=== PATIENT | female | born 1985 | race Two or more races ===

== ENCOUNTER 2017-09-18 11:50 | Inpatient (IN) | payer OTHER ==
--- NOTE | 2017-09-18 15:40 | HP ---
Past Medical History - Past Medical History ...: 1 ...Para: 0 ...Term: 0 ...: 0 ...Spon : 0 ...Induced : 0 ...EDC by [facility]: 09/13/17 Home Medications - Allergies Allergies/Adverse Reactions: Allergies Allergy/AdvReac Type Severity Reaction Status Date / Time No Known Allergies Allergy Verified 09/18/17 12:25 - Home Medications Home Medications: Ambulatory Orders Ascorbic Acid [Vitamin C -] 500 mg PO DAILY 09/18/17 Pnv No.95/Ferrous Fum/Folic AC [ Vitamin Tablet] 1 each PO DAILY Physical Exam - Maternity Vital Signs: Vital Signs Temperature 97.9 F 09/18/17 12:20 Pulse Rate 85 09/18/17 12:20 Respiratory Rate 20 09/18/17 12:20 Blood Pressure 113/75 09/18/17 12:20 O2 Sat by Pulse Oximetry (%)
[2017-09-18] MEDS ORDERED: PROMETHAZINE HCL 25 MG/1 ML VIAL IVPUSH ONE (15:45)
[2017-09-18] MEDS ORDERED: BUTORPHANOL TARTRATE 1 MG/ML VIAL IVPB PRN (15:45)
[2017-09-18] MEDS ORDERED: ELECTROLYTE-148 SOLN 1,000 ML IV SCH (15:45)
[2017-09-18 16:08] VITALS: BMI 33.0
[2017-09-18 16:37] LABS: BASO % 0.3 % (0-2.0); HEMATOCRIT 36.6 % (32.4-45.2); HEMOGLOBIN 12.3 GM/dL (10.7-15.3); LYMPH % 9.2 % (8-40); MCH 28.2 pg (25.7-33.7); MCHC 33.6 g/dl (32.0-36.0); MEAN CELL VOLUME 83.9 fl (80-96); MEAN PLT VOLUME 10.1 fl (7.5-11.1); MONO % 4.6 % (3.8-10.2); NEUT % 85.9 % (42.8-82.8); PLATELET COUNT 237 K/MM3 (134-434); RBC 4.36 M/mm3 (3.60-5.2); RDW 14.1 % (11.6-15.6); WHITE BLOOD COUNT 9.9 K/mm3 (4.0-10.0)
[2017-09-18] MEDS ORDERED: TUBERCULIN PPD 5 TU/0.1ML SYRINGE (IN PATIENT USE ONLY) ID ONE (17:00)
[2017-09-18 17:10] LABS: INR 1.04 (0.82-1.09); PROTHROMBIN TIME (PATIENT) 11.7 SEC (9.7-13.0)
[2017-09-18 17:13] LABS: ACTIVATED PTT 26.9 SECONDS (25.2-36.5)
[2017-09-18] MEDS ORDERED: BUTORPHANOL TARTRATE 1 MG/ML VIAL ONE ×4 (17:31→22:50)
[2017-09-18] MEDS ORDERED: PROMETHAZINE HCL 25 MG/1 ML VIAL ONE ×2 (17:31→22:51)
[2017-09-18 17:48] LABS: ANION GAP 11 (8-16); BLOOD UREA NITROGEN 10 mg/dL (7-18); CALCIUM 8.6 mg/dL (8.5-10.1); CHLORIDE 106 mmol/L (98-107); CO2 23 mmol/L (21-32); CREATININE 0.7 mg/dL (0.55-1.02); GLUCOSE,RANDOM 95 mg/dL (74-106); POTASSIUM 4.1 mmol/L (3.5-5.1); SODIUM 140 mmol/L (136-145)
[2017-09-18] MEDS ORDERED: BUTORPHANOL TARTRATE 1 MG/ML VIAL IVPB ONE (22:15)
[2017-09-18] MEDS ORDERED: PROMETHAZINE HCL 25 MG/1 ML VIAL IVPB ONE (22:15)
[2017-09-19] MEDS ORDERED: BUPIVACAINE HCL/PF 0.25% (2.5MG/ML) 10 ML VIAL ONE ×2 (01:23→03:58)
[2017-09-19] MEDS ORDERED: LIDO 2%/EPI 1:200000 PRESRVFRE (20 ML SDVIAL) ONE (01:23)
[2017-09-19] MEDS ORDERED: FENTANYL/BUPIVACAINE/NS/PF - PCEA - 50 ML DISP.SYRIN EP ONE ×2 (01:25→04:14)
[2017-09-19] MEDS ORDERED: NALOXONE HCL 0.4 MG/ML VIAL IVPUSH PRN (01:46)
[2017-09-19] MEDS ORDERED: FENTANYL/BUPIVACAINE/NS/PF - PCEA - 50 ML DISP.SYRIN EP SCH (02:00)
[2017-09-19] MEDS ORDERED: OXYTOCIN 30 UNITS in 0.9% NS 30 UNIT/500 ML INFUS.BAG IVPB SCH (05:00)
[2017-09-19] MEDS ORDERED: OXYTOCIN 20 UNITS in 0.9% NS 20 UNIT/1,000 ML INFUS.BAG IV ONE ×2 (05:28→07:44)
[2017-09-19] MEDS ORDERED: BENZOCAINE 28 GM HEMORRHOIDAL OINTMENT TP PRN (08:41)
[2017-09-19] MEDS ORDERED: METHYLERGONOVINE MALEATE 0.2 MG/1 ML AMP IM PRN (08:41)
[2017-09-19] MEDS ORDERED: WITCH HAZEL 50% (TUCKS) 40 PAD/JAR PAD TP PRN (08:41)
[2017-09-19] MEDS ORDERED: BISACODYL 10 MG SUPP.RECT RC PRN (08:41)
[2017-09-19] MEDS ORDERED: BENZOCAINE 20% 57 GM BOTTLE TP PRN (08:41)
--- NOTE | 2017-09-19 08:41 | PN ---
Ante-Partal Exam - Subjective Subjective: Pt feeling urge to push Vital Signs: Vital Signs Temperature 97.9 F 09/19/17 06:00 Pulse Rate 121 H 09/19/17 08:00 Respiratory Rate 18 09/19/17 08:00 Blood Pressure 127/71 09/19/17 08:00 O2 Sat by Pulse Oximetry (%) 100 09/19/17 08:00 Bleeding: Yes Bleeding Description: Mild Headache: No Visual changes: No Right upper quadrant pain: No - Contractions Contractions: Yes Regularity: Regular Intensity: Mod/Strong Monitor Mode: External - Exam during Labor Variability: Moderate Category: I Exam: Vaginal Dilatation (cm): 10 Effacement (%): 100 Amniotic Membrane Status: Ruptured Station: 0 - Assessment/Plan Assessment/Plan: 32 y/o with SIUP at 40.5 weeks, labor, augmented overnight with pitocin AFVSS FHTS cat 1 to begin pushing
[2017-09-19] MEDS ORDERED: OXYTOCIN 20 UNITS in 0.9% NS 20 UNIT/1,000 ML INFUS.BAG IV SCH (08:45)
--- NOTE | 2017-09-19 10:05 | PN ---
Delivery - Delivery Vaginal Delivery: No Problems Type of Anesthesia: Epidural Episiotomy/Laceration: 2nd degree EBL (cc): 300 Delivery, Single - Stages of Labor Date of Delivery: 09/19/17 Time of Delivery: Date Placenta Delivered: 09/19/17 Time Placenta Delivered: Placenta: Yes: Spontaneous - Condition of Gender: Female Position: Right, OA - 1 Minute Total Score: 9 5 Minutes Total Score: 9 - [place] Feeding Plan Initial Plan: Elected not to breastfeed exclusively throughout hospitalization Remarks - Remarks Remarks: Uncomplicated of baby girl from PAMELA position loose nuchal cord noted, reduced after delivery of head anterior shoulder and posterior shoulders delivered with ease cord clamped and cut mouth and nose bulb suctioned placenta delivered in tact with 3VC 2nd degree lac repaired with 2-0 vicryl and 2-0 biosyn mom stable sponge and needle count correct baby to well baby nursery
[2017-09-19] MEDS: IBUPROFEN 600 MG TABLET (FP) PO PRN ×3 (10:08→23:08)
[2017-09-19] MEDS: ACETAMINOPHEN 325 MG TABLET (FP) PO PRN ×2 (10:09→23:09)
[2017-09-19] MEDS ORDERED: ACETAMINOPHEN 325 MG TABLET (FP) ONE (10:11)
[2017-09-19] MEDS ORDERED: IBUPROFEN 600 MG TABLET (FP) PO ONE (10:11)
[2017-09-19] MEDS: PRENATAL VITAMINS W/ FOLIC ACID TABLET (FP) PO SCH (11:57)
[2017-09-19] MEDS: FERROUS SO4 325 MG TABLET (FP) PO SCH ×2 (11:57→17:32)
[2017-09-20] MEDS: ACETAMINOPHEN 325 MG TABLET (FP) PO PRN (07:06)
[2017-09-20] MEDS: FERROUS SO4 325 MG TABLET (FP) PO SCH ×3 (07:06→17:03)
[2017-09-20] MEDS: IBUPROFEN 600 MG TABLET (FP) PO PRN ×2 (07:06→15:02)
--- NOTE | 2017-09-20 09:10 | PN ---
Post Progress Note - Subjective Subjective: Pt seen/evaluated and doing well. Pain controlled, tolerating diet. Ambulating , voiding, passing flatus. no complaints. Type of Delivery: Vital Signs: Vital Signs Temperature 98.1 F 09/20/17 07:51 Pulse Rate 74 09/20/17 07:51 Respiratory Rate 18 09/20/17 07:51 Blood Pressure 121/75 09/20/17 07:51 O2 Sat by Pulse Oximetry (%) 100 09/19/17 10:15 Uterus: Yes: Fundus Firm, Fundus below umbilicus Abdomen/GI: Yes: Abdomen soft, Passing flatus, Tolerating PO. No: Tender Lochia: Yes: Rubra Lochia, amount: Small Extremities: Yes: Calves non-tender Perineum: Yes: Laceration (2nd degree) Activity: Ambulating - Labs Labs: CBC WBC 9.9 K/mm3 (4.0-10.0) 09/18/17 15:31 RBC 4.36 M/mm3 (3.60-5.2) 09/18/17 15:31 Hgb 12.3 GM/dL (10.7-15.3) 09/18/17 15:31 Hct 36.6 % (32.4-45.2) 09/18/17 15:31 MCV 83.9 fl (80-96) 09/18/17 15:31 MCH 28.2 pg (25.7-33.7) 09/18/17 15:31 MCHC 33.6 g/dl (32.0-36.0) 09/18/17 15:31 RDW 14.1 % (11.6-15.6) 09/18/17 15:31 Plt Count 237 K/MM3 (134-434) 09/18/17 15:31 MPV 10.1 fl (7.5-11.1) 09/18/17 15:31 Absolute Neuts (auto) 8.5 # 09/18/17 15:31 Neutrophils % 85.9 % (42.8-82.8) H 09/18/17 15:31 Lymphocytes % 9.2 % (8-40) 09/18/17 15:31 Monocytes % 4.6 % (3.8-10.2) 09/18/17 15:31 Eosinophils % 0.0 % (0-4.5) 18 15:31 Basophils % 0.3 % (0-2.0) 18 15:31 Nucleated RBC % 0 % (0-0) 09/18/17 15:31 Problem List - Problems (1) Vaginal delivery Code(s): O80 - ENCOUNTER FOR FULL-TERM UNCOMPLICATED DELIVERY Assessment/Plan AFVSS Regular diet encourage ambulation CBC pending routine post care
[2017-09-20] MEDS: PRENATAL VITAMINS W/ FOLIC ACID TABLET (FP) PO SCH (09:38)
[2017-09-20 09:58] LABS: BASO % 0.4 % (0-2.0); EOS % 0.4 % (0-4.5); HEMATOCRIT 25.5 % (32.4-45.2); HEMOGLOBIN 8.6 GM/dL (10.7-15.3); LYMPH % 18.8 % (8-40); MCH 28.5 pg (25.7-33.7); MCHC 33.8 g/dl (32.0-36.0); MEAN CELL VOLUME 84.4 fl (80-96); MEAN PLT VOLUME 9.5 fl (7.5-11.1); MONO % 7.9 % (3.8-10.2); NEUT % 72.5 % (42.8-82.8); PLATELET COUNT 172 K/MM3 (134-434); RBC 3.02 M/mm3 (3.60-5.2); RDW 14.3 % (11.6-15.6); WHITE BLOOD COUNT 12.8 K/mm3 (4.0-10.0)
[2017-09-20] MEDS ORDERED: DIPHTH,PERTUSS(ACELL),TET 0.5 ML DISP.SYRIN IM ONE (10:00)
[2017-09-20] MEDS ORDERED: SENNOSIDES/DOCUSATE COMBO (SENNA PLUS) TABLET (UD) PO PRN (22:00)
--- NOTE | 2017-09-21 05:35 | PN ---
Post Progress Note Post Day: 2 Type of Delivery: Vital Signs: Vital Signs Temperature 98.0 F 09/20/17 22:00 Pulse Rate 94 H 09/20/17 22:00 Respiratory Rate 20 09/20/17 22:00 Blood Pressure 122/54 09/20/17 22:00 O2 Sat by Pulse Oximetry (%) 100 09/19/17 10:15 Breast Exam: Yes: Soft Uterus: Yes: Fundus Firm Abdomen/GI: Yes: Abdomen soft, Passing flatus, Tolerating PO Lochia: Yes: Serosa Lochia, amount: Moderate Extremities: Yes: Calves non-tender Activity: Ambulating - Labs Labs: CBC WBC 12.8 K/mm3 (4.0-10.0) H 09/20/17 09:30 RBC 3.02 M/mm3 (3.60-5.2) L D 09/20/17 09:30 Hgb 8.6 GM/dL (10.7-15.3) L D 09/20/17 09:30 Hct 25.5 % (32.4-45.2) L D 09/20/17 09:30 MCV 84.4 fl (80-96) 09/20/17 09:30 MCH 28.5 pg (25.7-33.7) 09/20/17 09:30 MCHC 33.8 g/dl (32.0-36.0) 09/20/17 09:30 RDW 14.3 % (11.6-15.6) 09/20/17 09:30 Plt Count 172 K/MM3 (134-434) D 09/20/17 09:30 MPV 9.5 fl (7.5-11.1) 09/20/17 09:30 Absolute Neuts (auto) 9.3 # 09/20/17 09:30 Neutrophils % 72.5 % (42.8-82.8) 09/20/17 09:30 Lymphocytes % 18.8 % (8-40) D 09/20/17 09:30 Monocytes % 7.9 % (3.8-10.2) 09/20/17 09:30 Eosinophils % 0.4 % (0-4.5) D 09/20/17 09:30 Basophils % 0.4 % (0-2.0) 09/20/17 09:30 Nucleated RBC % 0 % (0-0) 09/20/17 09:30 Assessment/Plan s/p normal spontaneous vaginal delivery condition stable plan to discharge home today, f/u in 4 weeks continue vitamins may use motrin prn pain
[2017-09-21] MEDS: IBUPROFEN 600 MG TABLET (FP) PO PRN (06:55)
[2017-09-21] MEDS: ACETAMINOPHEN 325 MG TABLET (FP) PO PRN (06:56)
[2017-09-21] MEDS: FERROUS SO4 325 MG TABLET (FP) PO SCH ×2 (08:33→11:35)
[2017-09-21 08:46] VITALS: BP 127/68; PULSE 80; TEMP 98.5
[2017-09-21 09:07] LABS: BASO % 0.4 % (0-2.0); EOS % 1.6 % (0-4.5); HEMOGLOBIN 8.7 GM/dL (10.7-15.3); LYMPH % 19.4 % (8-40); MCH 28.9 pg (25.7-33.7); MCHC 33.6 g/dl (32.0-36.0); MEAN CELL VOLUME 85.9 fl (80-96); MEAN PLT VOLUME 9.5 fl (7.5-11.1); MONO % 4.6 % (3.8-10.2); PLATELET COUNT 188 K/MM3 (134-434); RBC 3.03 M/mm3 (3.60-5.2); RDW 14.3 % (11.6-15.6); WHITE BLOOD COUNT 10.9 K/mm3 (4.0-10.0)
[2017-09-21] MEDS: PRENATAL VITAMINS W/ FOLIC ACID TABLET (FP) PO SCH (09:13)
== END 2017-09-21 14:30 | disposition home or self-care (01) | DRG 560 ==
LOC: JDEL 11:50 → JLDR 15:30 → J3W 09-19 11:32
PROVIDERS: ADMIT Obstetrics & Gynecology; ATTEND Obstetrics & Gynecology
PROC: 0W8NXZZ Division of Female Perineum, External Approach (ICD-10-PCS; principal; 2017-09-19)
PROC: 10E0XZZ Delivery of Products of Conception, External Approach (ICD-10-PCS; 2017-09-19)
PROC: 0KQM0ZZ Repair Perineum Muscle, Open Approach (ICD-10-PCS; 2017-09-19)
DX: O70.1 Second degree perineal laceration during delivery (principal); Z3A.40 40 weeks gestation of pregnancy; Z37.0 Single live birth
CPT/HCPCS: 36415; 59409; 80048; 85025; 85610; 85730; 86593; 86850; 86900; 86901; 90715

== ENCOUNTER 2018-05-13 14:37 | Inpatient (IN) | payer OTHER ==
[2018-05-13] MEDS ORDERED: ONDANSETRON 4 MG/2 ML VIAL IVPUSH ONE (14:53)
[2018-05-13] MEDS ORDERED: SODIUM CHLORIDE 1,000 ML IV STA (14:53)
--- NOTE | 2018-05-13 14:55 | PDOC ---
Rapid Medical Evaluation Time Seen by Provider: 05/13/18 14:49 Medical Evaluation: Allergies Allergy/AdvReac Type Severity Reaction Status Date / Time No Known Allergies Allergy Verified 05/13/18 14:49 05/13/18 14:50 Pt presents for R flank pain/R abdominal pain starting this morning. Pt had kidney stones in the past. Also with associated vomiting. LMP 05/02/18 Exam: Pt appears uncomfortable. R sided CVA tenderness. Vomiting in triage Orders: Labs, IV Pt to proceed to the ED for further evaluation Discharge Disposition - Diagnosis Abdominal pain Qualifiers: Abdominal location: right lower quadrant Qualified Code(s): R10.31 - Right lower quadrant pain - Referrals - Patient Instructions - Post Discharge Activity
--- NOTE | 2018-05-13 15:25 | PDOC ---
History of Present Illness - General Chief Complaint: Pain, Acute Stated Complaint: ABD PAIN Time Seen by Provider: 05/13/18 14:49 History Source: Patient - History of Present Illness Initial Comments: 05/13/18 15:51 33 yr old woman with hx of nephrolithiasis presenting to the ED with nausea, vomiting and abdominal pain since 7am this morning. it is sharp starting at her right flank, >10/10, radiating down, now located in her lower abdomen. she had 5 episodes of emesis consisting of food and later bilious, denies blood. a/w decr urine output with weak stream today. denies fever, cough, dysuria, hematuria, diarrhea, constipation, chest pain, palpitations, edema, dizziness, lightheadedness. feels like the last time she had renal stones. last time she had stones was 6yrs ago and she was able to pass them. denied recent travel Soc hx denies smoking, ETOH and illicit drug use Pmhx: nephrolithiasis Surghx: denies Fmhx: mother with thyroid cancer dx'd at age 52, father with DMII Past History - Past Medical History Allergies/Adverse Reactions: Allergies Allergy/AdvReac Type Severity Reaction Status Date / Time No Known Allergies Allergy Verified 05/13/18 14:49 Home Medications: Ambulatory Orders NK [No Known Home Medication] 05/13/18 Asthma: No Cancer: No Cardiac Disorders: No COPD: No Diabetes: No HTN: No Kidney Stones: Yes (X1) Seizures: No Thyroid Disease: Yes (ELEVATED TSH IN , SAW DELI CUTTER SLICER, 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 Loss HEENTM: No: Nose Pain, Throat Pain, Difficulty Swallowing Respiratory: No: Cough, Shortness of Breath, Wheezing Cardiac (ROS): No: Chest Pain, Lightheadedness, Palpitations, Chest Tightness ABD/GI: Yes: Nausea, Vomiting. No: Abdominal Distended Musculoskeletal: No: Muscle Weakness, Joint Stiffness Integumentary: No: Dryness, Erythema *Physical Exam - Vital Signs Last Vital Signs Temp Pulse Resp BP Pulse Ox 98.4 F 69 19 95/50 L 97 05/13/18 14:50 05/13/18 14:50 05/13/18 14:50 05/13/18 14:50 05/13/18 14:50 - Physical Exam General Appearance: Yes: Appropriately Dressed, Apparent Distress, Mild Distress HEENT: positive: EOMI, BHUPENDRA, Normal Voice, Pharynx Normal. negative: Tonsillar Exudate Neck: positive: Trachea midline, Normal Thyroid, Supple Respiratory/Chest: positive: Lungs Clear, Normal Breath Sounds. negative: Crackles, Wheezing Cardiovascular: positive: Regular Rhythm, Regular Rate Gastrointestinal/Abdominal: positive: Normal Bowel Sounds, Tenderness (RLQ with deep palpation). negative: Guarding, Rebound, Hernia, Mass Musculoskeletal: negative: CVA Tenderness Extremity: positive: Normal Range of Motion. negative: Calf Tenderness Neurologic: positive: Fully Oriented, Motor Strength 5/5 Moderate Sedation - Procedure Monitoring Vital Signs: Procedure Monitoring Vital Signs Temperature 98.4 F 05/13/18 14:50 Pulse Rate 69 05/13/18 14:50 Respiratory Rate 19 05/13/18 14:50 Blood Pressure 95/50 L 05/13/18 14:50 O2 Sat by Pulse Oximetry (%) 97 05/13/18 14:50 ED Treatment Course - LABORATORY CBC & Chemistry Diagram: 05/13/18 15:11 05/13/18 15:10 Medical Decision Making - Medical Decision Making 05/13/18 16:49 33 yr old woman with radiating RLQ pain a/w vomiting. labs with leucocytosis. differentials include appendicitis, renal stones, diverticulitis, cholecystitis, hyperkalemia at 6.0 with normal BUN/Cr, unclear source of elevation, could be due to vomiting, check EKG will do abdominal/pelvis CT scan to r/o renal stones and abdominal pathology pain relief with toradol 05/13/18 18:12 obstructing stone 6x4 noted [address] scan pt to be admitted, [facility] covering for Dr. Pollack, covering for Dr. Lopes consult placed for Dr. Issa, awaiting call back 05/13/18 18:[address] Issa: keep NPO, pain control, antibiotics, urine culture , ivf. she will be seen in the morning. 05/13/18 19:07 updated admitting team regarding plan. discussed with patient, she is in agreement to admission and plan. answered all her questions to satisfaction. *DC/Admit/Observation/Transfer Diagnosis at time of Disposition: Nephrolithiasis Abdominal pain Qualifiers: Abdominal location: right lower quadrant Qualified Code(s): R10.31 - Right lower quadrant pain - Discharge Dispostion Decision to Admit order: Yes - Referrals - Patient Instructions - Post Discharge Activity
[2018-05-13 15:27] LABS: BASO % 0.2 % (0-2.0); HEMATOCRIT 41.1 % (32.4-45.2); HEMOGLOBIN 14.2 GM/dL (10.7-15.3); LYMPH % 4.4 % (8-40); MCH 29.6 pg (25.7-33.7); MCHC 34.6 g/dl (32.0-36.0); MEAN CELL VOLUME 85.6 fl (80-96); MEAN PLT VOLUME 10.8 fl (7.5-11.1); MONO % 2.8 % (3.8-10.2); NEUT % 92.6 % (42.8-82.8); PLATELET COUNT 258 K/MM3 (134-434); RDW 14.6 % (11.6-15.6); WHITE BLOOD COUNT 14.3 K/mm3 (4.0-10.0)
[2018-05-13 15:34] LABS: HCG,QUALITATIVE URINE Negative
[2018-05-13] MEDS ORDERED: ONDANSETRON 4 MG/2 ML VIAL ONE (15:37)
[2018-05-13 15:47] LABS: URINE APPEARANCE SLCLOUDY; URINE BILIRUBIN NEGATIVE (<2.0 mg/dL); URINE COLOR YELLOW; URINE GLUCOSE (UA) NEGATIVE (NEGATIVE); URINE KETONE TRACE (NEGATIVE); URINE LEUK ESTERASE 2+ (NEGATIVE); URINE NITRITE NEGATIVE (NEGATIVE); URINE PROTEIN 2+ (NEGATIVE)
[2018-05-13 15:58] LABS: ALBUMIN 4.1 g/dl (3.4-5.0); ALK PHOS 168 U/L (45-117); ANION GAP 5 MMOL/L (8-16); BILIRUBIN,TOTAL 0.4 mg/dL (0.2-1); BLOOD UREA NITROGEN 18 mg/dL (7-18); CALCIUM 8.9 mg/dL (8.5-10.1); CHLORIDE 103 mmol/L (98-107); CO2 27 mmol/L (21-32); CREATININE 1.2 mg/dL (0.55-1.3); GLUCOSE,RANDOM 103 mg/dL (74-106); LIPASE 67 U/L (73-393); SGOT/AST 85 U/L (15-37); SGPT/ALT 41 U/L (13-61); SODIUM 135 mmol/L (136-145); TOT PROT 8.3 g/dl (6.4-8.2)
[2018-05-13 16:14] LABS: EPI CELLS FEW /HPF (FEW); URINE BACTERIA RARE /hpf (NONE SEEN); URINE MUCUS RARE
--- NOTE | 2018-05-13 16:29 | PDOC ---
Attending Attestation - Resident Resident Name: Luis Eduardo Layne - ED Attending Attestation I have performed the following: I have examined & evaluated the patient, The case was reviewed & discussed with the resident, I agree w/resident's findings & plan - HPI HPI: 05/13/18 16:24 33y/o F h/o kidney stones p/w R flank/abdominal pain since this morning, sharp and persistent with occasional severe exacerbations. associated with nbnb n/v, no f/c. no dysuria/hematuria. feels like past kidney stones, no h/o gallstones or postprandial abdominal pain. - Physicial Exam PE: 05/13/18 16:25 VSS well appearing and ambulating, nad no jaundice/pallor s1s2 rrr, ctab soft/nd. tender R mid/lower abd without guarding/rebound, some referred pain to R from L sided palpation. no cvat or RUQ sono. no rash - Medical Decision Making 05/13/18 16:26 33y/o F with h/o kidney stones p/w R sided flank/abd pain since this morning with n/v. presentation could be most c/w nephrolithiasis, r/o appy or etiology. labs notable for wbc 14, K6 with normal Cr, slightly elevated alk phos. ua with 10w, 40r. 2+ leuk with negative nitrites ctap to r/o obstructing stone, evaluate GI pain control reassess
[2018-05-13] MEDS ORDERED: KETOROLAC TROMETHAMINE 30 MG/1 ML VIAL IM ONE (17:33)
[2018-05-13 17:34] LABS: PLATELET ESTIMATE ADEQUATE
[2018-05-13] MEDS ORDERED: KETOROLAC TROMETHAMINE 30 MG/1 ML VIAL IVPUSH ONE (17:34)
[2018-05-13] MEDS ORDERED: KETOROLAC TROMETHAMINE 30 MG/1 ML VIAL ONE (17:35)
[2018-05-13] MEDS ORDERED: CEFTRIAXONE 1 GM in DEXTROSE 5%-WATER - 100 ML IVPB ONE (18:46)
[2018-05-13] MEDS ORDERED: CEFTRIAXONE 1 GM/50 ML BAG ONE (19:04)
[2018-05-13] MEDS ORDERED: ONDANSETRON 4 MG/2 ML VIAL IVPUSH PRN (19:22)
[2018-05-13] MEDS ORDERED: SODIUM CHLORIDE 1,000 ML IV SCH (19:30)
--- NOTE | 2018-05-13 19:36 | HP ---
CHIEF COMPLAINT: Right flank/Abdominal pain PCP: HISTORY OF PRESENT ILLNESS: The patient is a 33 yo f w/ PMH nephrolithiasis who comes into the ED c/o a 1 day hx nausea, vomiting and abdominal pain. The patient states that at about 7am this morning, she began to experience a sharp, 10/10 pain in her right flank area. This pain radiated to her right inguinal region and had no exacerbating or alleviating factors. These symptoms were also associated with dysuria as well as decreased urine output for the past day as well. The patient also endorses nausea and 5 episodes on NBNB vomiting. The vomiting resolved after the pain was treated in the ED. The patient denies fevers, chills hematuria, chest pain, SOB. ER course was notable for: (1) CTAP showing obstructing 6mm x 4mm stone at the right UVJ (2) WBC 14.3, potassium 6.0, BUN 18, Cr. 1.2 (3) UA showing 2+prot, 1+ blood, 2+ leuk esterase, 10 WBC Recent Travel: none PAST MEDICAL HISTORY: Nephrolithiasis PAST SURGICAL HISTORY: none Social History: Smoking: denies Alcohol: denies Drugs: denies Family History: mother with thyroid cancer dx'd at age 52, father with DMII Allergies No Known Allergies Allergy (Verified 05/13/18 14:49) HOME MEDICATIONS: Home Medications Medication Instructions Recorded NK [No Known Home Medication] 05/13/18 REVIEW OF SYSTEMS CONSTITUTIONAL: Absent: fever, chills, diaphoresis, generalized weakness, malaise, loss of appetite, weight change HEENT: Absent: rhinorrhea, nasal congestion, throat pain, throat swelling, difficulty swallowing, mouth swelling, ear pain, eye pain, visual changes CARDIOVASCULAR: Absent: chest pain, syncope, palpitations, irregular heart rate, lightheadedness , peripheral edema RESPIRATORY: Absent: cough, shortness of breath, dyspnea with exertion, orthopnea, wheezing, stridor, hemoptysis GASTROINTESTINAL: Absent: abdominal distension, diarrhea, constipation, melena, hematochezia GENITOURINARY: Absent: frequency, urgency, hesitancy, hematuria, genital pain MUSCULOSKELETAL: Absent: myalgia, arthralgia, joint swelling, back pain, neck pain SKIN: Absent: rash, itching, pallor HEMATOLOGIC/IMMUNOLOGIC: Absent: easy bleeding, easy bruising, lymphadenopathy, frequent infections ENDOCRINE: Absent: unexplained weight gain, unexplained weight loss, heat intolerance, cold intolerance NEUROLOGIC: Absent: headache, focal weakness or paresthesias, dizziness, unsteady gait, seizure, mental status changes, bladder or bowel incontinence PSYCHIATRIC: Absent: anxiety, depression, suicidal or homicidal ideation, hallucinations. PHYSICAL EXAMINATION Vital Signs - 24 hr 05/13/18 05/13/18 14:50 18:54 Temperature 98.4 F 98.4 F Pulse Rate 69 Pulse Rate [ 71 Apical] Respiratory 19 18 Rate Blood Pressure 95/50 L Blood Pressure 105/58 L [Right Arm] O2 Sat by Pulse 97 98 Oximetry (%) GENERAL: Awake, alert, and fully oriented, in no acute distress. HEAD: Normal with no signs of trauma. EYES: Pupils equal, round and reactive to light, extraocular movements intact, sclera anicteric, conjunctiva clear. No lid lag. LUNGS: Breath sounds equal, clear to auscultation bilaterally. No wheezes, and no crackles. No accessory muscle use. HEART: Regular rate and rhythm, normal S1 and S2, 2/6 diasolic murmur heard all across the precordium, rub or gallop. ABDOMEN: Soft, not distended, normoactive bowel sounds, no guarding, no rebound , no masses. Mild tenderness to palpation in the RLQ and in the suprapubic region. LOWER EXTREMITIES: 2+ pulses, warm, well-perfused. No calf tenderness. No peripheral edema. NEUROLOGICAL: Cranial nerves II-X intact. Normal speech. SKIN: Warm, dry, normal turgor, no rashes or lesions noted, normal capillary refill. Laboratory Results - last 24 hr 05/13/18 05/13/18 05/13/18 15:10 15:10 15:11 WBC 14.3 H RBC 4.80 Hgb 14.2 Hct 41.1 D MCV 85.6 MCH 29.6 MCHC 34.6 RDW 14.6 Plt Count 258 D MPV 10.8 D Absolute Neuts (auto) 13.2 H Total Counted 100 Neutrophils % 92.6 H D Neutrophils % (Manual) 93.0 H Band Neutrophils % 1.0 Lymphocytes % 4.4 L D Lymphocytes % (Manual) 2.0 L Monocytes % 2.8 L Monocytes % (Manual) 4 Eosinophils % 0.0 D Basophils % 0.2 Nucleated RBC % 0 Platelet Estimate Adequate Platelet Comment Large platelets PT with INR Cancelled INR Cancelled Sodium 135 L Potassium 6.0 H Chloride 103 Carbon Dioxide 27 Anion Gap 5 L BUN 18 Creatinine 1.2 Creat Clearance w eGFR 52.06 Random Glucose 103 Calcium 8.9 Total Bilirubin 0.4 AST 85 H ALT 41 Alkaline Phosphatase 168 H Total Protein 8.3 H Albumin 4.1 Lipase 67 L Urine Color Urine Appearance Urine pH Ur Specific [place] Urine Protein Urine Glucose (UA) Urine Ketones Urine Blood Urine Nitrite Urine Bilirubin Urine Urobilinogen Ur Leukocyte Esterase Urine WBC (Auto) Urine RBC (Auto) Ur Epithelial Cells Urine Bacteria Urine Mucus Urine HCG, Qual 05/13/18 15:14 WBC RBC Hgb Hct MCV MCH MCHC RDW Plt Count MPV Absolute Neuts (auto) Total Counted Neutrophils % Neutrophils % (Manual) Band Neutrophils % Lymphocytes % Lymphocytes % (Manual) Monocytes % Monocytes % (Manual) Eosinophils % Basophils % Nucleated RBC % Platelet Estimate Platelet Comment PT with INR INR Sodium Potassium Chloride Carbon Dioxide Anion Gap BUN Creatinine Creat Clearance w eGFR Random Glucose Calcium Total Bilirubin AST ALT Alkaline Phosphatase Total Protein Albumin Lipase Urine Color Yellow Urine Appearance Slcloudy Urine pH 8.0 Ur Specific [place] 1.028 Urine Protein 2+ H Urine Glucose (UA) Negative Urine Ketones Trace H Urine Blood 1+ H Urine Nitrite Negative Urine Bilirubin Negative Urine Urobilinogen 2.0 H Ur Leukocyte Esterase 2+ H Urine WBC (Auto) 10 Urine RBC (Auto) 40 Ur Epithelial Cells Few Urine Bacteria Rare Urine Mucus Rare Urine HCG, Qual Negative ASSESSMENT/PLAN: The patient is a 33 yo f w/ PMH nephrolithiasis who comes in c/o a 1 day hx right sided flank pain and abdominal pain who was found to have an obstructing stone #RIght flank and abdominal pain 2/2 obstructing stone -CTAP shows 6mm x 4mm obstructing stone at the right UVJ w/ hydronephrosis -s/p toradol, rocephin in ED -urology (Dr. Prince) consulted from the ED; recommends NPO past midnight , rocephin, IVF and pain control. He will assess the patient in AM -Toradol 10mg PO Q6H PRN -zofran IV PRN nausea -NS @ 100 -NPO past midnight #hyperkalemia -K 6.0 in ED -No EKG changes or ssx at this time -will rpt BMP stat -will get GGT #Diastolic murmur -patient has no history of murmur/cardiac conditions -will obtain echo to [facility] #FEN -NS@100 -monitor lytes as above -NPO past midnight #prophy -patient ambulatory -SCDs #Dispo -admit med surg Visit type - Emergency Visit Emergency Visit: Yes ED Registration Date: 05/13/18 Care time: The patient presented to the Emergency Department on the above date and was hospitalized for further evaluation of their emergent condition. - New Patient This patient is new to me today: Yes Date on this admission: 05/13/18 - Critical Care Critical Care patient: No
--- NOTE | 2018-05-13 20:04 | PN ---
Teaching Attending Note Name of Resident: Jamir Ruvalcaba ATTENDING PHYSICIAN STATEMENT I saw and evaluated the patient. I reviewed the resident's note and discussed the case with the resident. I agree with the resident's findings and plan as documented. SUBJECTIVE: Seen and examined; please refer to resident note for further historical informaiton. Briefly, this is a 33 y/o female presenting to the ER with a CC of R-sided pain similar to her last renal stone (did not get procedure with spontaneously passing it). She has no other pertinent PMH and is not on any chronic Rx medications. Does have some dysuria and frequency, no recent abx. ER phoned urology who are aware patient is here. She will be brought to the floor with uro consult; size of the stone lends us to believe she will need procedural intervention. Denies any cardiopulmonary sx; incidentally found to have a murmur. 10 sys ROS done and negative aside from HPI PMH, PSH, Social hx, Family hx reviewed Med Rec Pending OBJECTIVE: VS, labs, imaging reviewed NAD, AAO, resting comfortably in bed NC AT EOMI PERRLA RRR s1/2; mild murmur with no gallops or rubs Lungs CTAB, w/ sym exp R-sided CVA/flank tenderness, ND +BS CN2-12 wnl, no fnd Normal mood, appropriate affect Labs reviewed; leukocytosis with 2+LE UA, K is 6 and repeat pending Echo pending Final read on imaging pending; prelim results reviewed ASSESSMENT AND PLAN: Patient presents with nephrolithiasis 1) Nephrolithiasis -Followup urology consult; defer ultimate management to their service. -NPO, IVF, pain and nausea control -Monitor BMP for any derrangement in renal function -Can consider flomax 2) Hyperkalemia
[2018-05-14 00:46] LABS: ALBUMIN 3.7 g/dl (3.4-5.0); ALK PHOS 150 U/L (45-117); ANION GAP 3 MMOL/L (8-16); BILIRUBIN,TOTAL 0.4 mg/dL (0.2-1); BLOOD UREA NITROGEN 16 mg/dL (7-18); CALCIUM 8.6 mg/dL (8.5-10.1); CHLORIDE 106 mmol/L (98-107); CO2 30 mmol/L (21-32); CREATININE 0.8 mg/dL (0.55-1.3); GAMMA GLUTAMYL TRANSPEPTIDASE 69 U/L (5-85); GLUCOSE,RANDOM 85 mg/dL (74-106); POTASSIUM 4.2 mmol/L (3.5-5.1); SGOT/AST 24 U/L (15-37); SGPT/ALT 31 U/L (13-61); SODIUM 139 mmol/L (136-145); TOT PROT 7.3 g/dl (6.4-8.2)
[2018-05-14] MEDS: KETOROLAC TROMETHAMINE 10 MG TABLET PO SCH ×3 (01:01→11:38)
[2018-05-14 03:17] VITALS: BMI 28.2
[2018-05-14 07:34] LABS: BASO % 0.4 % (0-2.0); EOS % 0.5 % (0-4.5); HEMATOCRIT 34.7 % (32.4-45.2); HEMOGLOBIN 11.8 GM/dL (10.7-15.3); LYMPH % 35.8 % (8-40); MCH 29.2 pg (25.7-33.7); MCHC 34.1 g/dl (32.0-36.0); MEAN CELL VOLUME 85.7 fl (80-96); MEAN PLT VOLUME 10.3 fl (7.5-11.1); MONO % 8.6 % (3.8-10.2); NEUT % 54.7 % (42.8-82.8); PLATELET COUNT 221 K/MM3 (134-434); RBC 4.04 M/mm3 (3.60-5.2); RDW 14.7 % (11.6-15.6)
[2018-05-14 07:52] LABS: ALBUMIN 3.2 g/dl (3.4-5.0); ALK PHOS 123 U/L (45-117); ANION GAP 5 MMOL/L (8-16); BILIRUBIN,TOTAL 0.4 mg/dL (0.2-1); BLOOD UREA NITROGEN 13 mg/dL (7-18); CHLORIDE 112 mmol/L (98-107); CO2 26 mmol/L (21-32); CREATININE 0.7 mg/dL (0.55-1.3); GLUCOSE,RANDOM 81 mg/dL (74-106); PHOSPHOROUS 2.5 mg/dL (2.5-4.9); POTASSIUM 3.9 mmol/L (3.5-5.1); SGOT/AST 15 U/L (15-37); SGPT/ALT 26 U/L (13-61); SODIUM 142 mmol/L (136-145); TOT PROT 6.2 g/dl (6.4-8.2)
[2018-05-14 08:29] LABS: INR 1.18 (0.83-1.09); PROTHROMBIN TIME (PATIENT) 13.9 SEC (9.7-13.0)
[2018-05-14 08:32] LABS: ACTIVATED PTT 28.9 SECONDS (25.2-36.5)
[2018-05-14 09:07] VITALS: BP 102/49; PULSE 62; TEMP 97.9
[2018-05-14] MEDS ORDERED: cefTRIAXone SODIUM 1 GM VIAL ONE (09:35)
[2018-05-14] MEDS ORDERED: DEXTROSE 5%-WATER - 50 ML IVPB ONE (09:35)
--- NOTE | 2018-05-14 09:53 | EKG ---
Test Reason : Blood Pressure : / mmHG Vent. Rate : 060 BPM Atrial Rate : 060 BPM P-R Int : 120 ms QRS Dur : 078 ms QT Int : 452 ms P-R-T Axes : 008 076 071 degrees QTc Int : 452 ms NORMAL SINUS RHYTHM NORMAL ECG NO PREVIOUS ECGS AVAILABLE Confirmed by LINDSAY CHOWDHURY, JEREMIAS ([id number]) on 05/14/2018 9:52:44 AM Referred By: Confirmed By:JEREMIAS MONTOYA MD
[2018-05-14] MEDS ORDERED: TAMSULOSIN HCL 0.4 MG CAP PO SCH (09:57)
[2018-05-14] MEDS ORDERED: CEFTRIAXONE 1 GM in DEXTROSE 5%-WATER - 50 ML IVPB SCH (10:00)
[2018-05-14] MEDS ORDERED: DEXTROSE 5%-NORMAL SALINE 1,000 ML IV SCH (10:30)
--- NOTE | 2018-05-14 10:30 | PN ---
Teaching Attending Note Name of Resident: Jordan Mcelroy ATTENDING PHYSICIAN STATEMENT I saw and evaluated the patient. I reviewed the resident's note and discussed the case with the resident. I agree with the resident's findings and plan as documented with exceptions below. SUBJECTIVE: Patient seen and examined. denies any pain or urinary symptoms. Reports similar symptoms few years ago when 'passed the stone'. OBJECTIVE: Vital Signs Period Temp Pulse Resp BP Sys/Vila Pulse Ox Last 24 Hr 97.9 F-98.8 F 57-71 16-20 88-105/47-58 97-98 Intake & Output 05/11/18 05/12/18 05/13/18 05/14/18 23:59 23:59 23:59 23:59 Intake Total 500 Output Total 500 Balance 0 Weight 151 lb 149 lb 8 oz General: sitting in bed in no acute distress Chest: CTAB, no rales or wheezing Abdomen: soft, non tender throughout, no suprapubic or CVA tenderness, ND Extremities: no edema Home Medications Medication Instructions Recorded NK [No Known Home Medication] 05/13/18 Active Medications Ceftriaxone Sodium 1 gm/ (Dextrose) 50 mls @ 100 mls/hr IVPB DAILY [facility] Last Admin: 05/14/18 09:36 Dose: 100 mls/hr Dextrose/Sodium Chloride (D5-Ns -) 1,000 mls @ 125 mls/hr IV ASDIR [facility] Ketorolac Tromethamine (Toradol) 10 mg PO Q6HPO [facility] Stop: 05/18/18 00:00 Last Admin: 05/14/18 07:44 Dose: Not Given Ondansetron HCl (Zofran Injection) 4 mg IVPUSH Q6H PRN PRN Reason: NAUSEA Tamsulosin HCl (Flomax -) 0.4 mg PO DAILY@0830 [facility] Laboratory Results - last 24 hr 05/13/18 05/13/18 05/13/18 15:10 15:10 15:11 WBC 14.3 H RBC 4.80 Hgb 14.2 Hct 41.1 D MCV 85.6 MCH 29.6 MCHC 34.6 RDW 14.6 Plt Count 258 D MPV 10.8 D Absolute Neuts (auto) 13.2 H Total Counted 100 Neutrophils % 92.6 H D Neutrophils % (Manual) 93.0 H Band Neutrophils % 1.0 Lymphocytes % 4.4 L D Lymphocytes % (Manual) 2.0 L Monocytes % 2.8 L Monocytes % (Manual) 4 Eosinophils % 0.0 D Basophils % 0.2 Nucleated RBC % 0 Platelet Estimate Adequate Platelet Comment Large platelets PT with INR Cancelled INR Cancelled PTT (Actin FS) Sodium 135 L Potassium 6.0 H Chloride 103 Carbon Dioxide 27 Anion Gap 5 L BUN 18 Creatinine 1.2 Creat Clearance w eGFR 52.06 Random Glucose 103 Calcium 8.9 Phosphorus Magnesium Total Bilirubin 0.4 GGT AST 85 H ALT 41 Alkaline Phosphatase 168 H Total Protein 8.3 H Albumin 4.1 Lipase 67 L Urine Color Urine Appearance Urine pH Ur Specific [place] Urine Protein Urine Glucose (UA) Urine Ketones Urine Blood Urine Nitrite Urine Bilirubin Urine Urobilinogen Ur Leukocyte Esterase Urine WBC (Auto) Urine RBC (Auto) Ur Epithelial Cells Urine Bacteria Urine Mucus Urine HCG, Qual 05/13/18 05/13/18 05/14/18 15:14 23:29 06:00 WBC 6.0 RBC 4.04 Hgb 11.8 Hct 34.7 D MCV 85.7 MCH 29.2 MCHC 34.1 RDW 14.7 Plt Count 221 MPV 10.3 Absolute Neuts (auto) 3.3 Total Counted Neutrophils % 54.7 D Neutrophils % (Manual) Band Neutrophils % Lymphocytes % 35.8 D Lymphocytes % (Manual) Monocytes % 8.6 D Monocytes % (Manual) Eosinophils % 0.5 D Basophils % 0.4 Nucleated RBC % 0 Platelet Estimate Platelet Comment PT with INR INR PTT (Actin FS) Sodium 139 Potassium 4.2 Chloride 106 Carbon Dioxide 30 Anion Gap 3 L BUN 16 Creatinine 0.8 Creat Clearance w eGFR > 60 Random Glucose 85 Calcium 8.6 Phosphorus Magnesium Total Bilirubin 0.4 GGT 69 AST 24 ALT 31 Alkaline Phosphatase 150 H Total Protein 7.3 Albumin 3.7 Lipase Urine Color Yellow Urine Appearance Slcloudy Urine pH 8.0 Ur Specific [place] 1.028 Urine Protein 2+ H Urine Glucose (UA) Negative Urine Ketones Trace H Urine Blood 1+ H Urine Nitrite Negative Urine Bilirubin Negative Urine Urobilinogen 2.0 H Ur Leukocyte Esterase 2+ H Urine WBC (Auto) 10 Urine RBC (Auto) 40 Ur Epithelial Cells Few Urine Bacteria Rare Urine Mucus Rare Urine HCG, Qual Negative 05/14/18 05/14/18 06:00 06:00 WBC RBC Hgb Hct MCV MCH MCHC RDW Plt Count MPV Absolute Neuts (auto) Total Counted Neutrophils % Neutrophils % (Manual) Band Neutrophils % Lymphocytes % Lymphocytes % (Manual) Monocytes % Monocytes % (Manual) Eosinophils % Basophils % Nucleated RBC % Platelet Estimate Platelet Comment PT with INR 13.90 H INR 1.18 H PTT (Actin FS) 28.9 Sodium 142 Potassium 3.9 Chloride 112 H Carbon Dioxide 26 Anion Gap 5 L BUN 13 Creatinine 0.7 Creat Clearance w eGFR > 60 Random Glucose 81 Calcium 8.0 L Phosphorus 2.5 Magnesium 2.0 Total Bilirubin 0.4 GGT AST 15 ALT 26 Alkaline Phosphatase 123 H Total Protein 6.2 L Albumin 3.2 L Lipase Urine Color Urine Appearance Urine pH Ur Specific [place] Urine Protein Urine Glucose (UA) Urine Ketones Urine Blood Urine Nitrite Urine Bilirubin Urine Urobilinogen Ur Leukocyte Esterase Urine WBC (Auto) Urine RBC (Auto) Ur Epithelial Cells Urine Bacteria Urine Mucus Urine HCG, Qual Microbiology 05/13/18 15:00 Urine - Urine Clean Catch Urine Culture - Final NO GROWTH OBTAINED ASSESSMENT AND PLAN: 33 yof with right obstructing nephrolithiasis with hydronephrosis/Hydroureter. -Right obtsrucitve nephrolithiasis with hydronephrosis/hydroureter Plan: Discussed with urology, conservative management Recommend flomax. Urine cx neg. Patient asymptomatic. Keflex x 5 days Patient advised to drink plenty of fluids, monitor urine for stone fragments, continue flomax and outpatient urology follow up. Medication instructions about flomax and risk for dizziness discussed. D/c home today with outpatient urology follow up. Plan discussed with patient in detail, all questions answered.
[2018-05-14] MEDS ORDERED: PT OWN MED DRAWER 7, Y5N ONE ×2 (11:37→11:56)
--- NOTE | 2018-05-14 14:25 | DS ---
Physical Exam: SUBJECTIVE: Patient seen and examined feels good no new complaints no more oakley OBJECTIVE: Vital Signs Period Temp Pulse Resp BP Sys/Vila Pulse Ox Last 24 Hr 97.9 F-98.8 F 57-71 16-20 88-105/47-58 97-100 PHYSICAL EXAM GENERAL: The patient is awake, alert, and fully oriented, in no acute distress. HEAD: Normal with no signs of trauma. ENT: oropharynx clear without exudates, moist mucous membranes. NECK: Trachea midline, full range of motion, supple. LUNGS: Breath sounds equal, clear to auscultation bilaterally, no wheezes, no crackles, no accessory muscle use. HEART: Regular rate and rhythm, S1, S2 normal ABDOMEN: Soft, nontender, nondistended, normoactive bowel sounds, no guarding, no rebound, PSYCH: Normal mood, normal affect. SKIN: Warm, dry, LABS Laboratory Results - last 24 hr 05/13/18 05/13/18 05/13/18 15:10 15:10 15:11 WBC 14.3 H RBC 4.80 Hgb 14.2 Hct 41.1 D MCV 85.6 MCH 29.6 MCHC 34.6 RDW 14.6 Plt Count 258 D MPV 10.8 D Absolute Neuts (auto) 13.2 H Total Counted 100 Neutrophils % 92.6 H D Neutrophils % (Manual) 93.0 H Band Neutrophils % 1.0 Lymphocytes % 4.4 L D Lymphocytes % (Manual) 2.0 L Monocytes % 2.8 L Monocytes % (Manual) 4 Eosinophils % 0.0 D Basophils % 0.2 Nucleated RBC % 0 Platelet Estimate Adequate Platelet Comment Large platelets PT with INR Cancelled INR Cancelled PTT (Actin FS) Sodium 135 L Potassium 6.0 H Chloride 103 Carbon Dioxide 27 Anion Gap 5 L BUN 18 Creatinine 1.2 Creat Clearance w eGFR 52.06 Random Glucose 103 Calcium 8.9 Phosphorus Magnesium Total Bilirubin 0.4 GGT AST 85 H ALT 41 Alkaline Phosphatase 168 H Total Protein 8.3 H Albumin 4.1 Lipase 67 L Urine Color Urine Appearance Urine pH Ur Specific [place] Urine Protein Urine Glucose (UA) Urine Ketones Urine Blood Urine Nitrite Urine Bilirubin Urine Urobilinogen Ur Leukocyte Esterase Urine WBC (Auto) Urine RBC (Auto) Ur Epithelial Cells Urine Bacteria Urine Mucus Urine HCG, Qual 05/13/18 05/13/18 05/14/18 15:14 23:29 06:00 WBC 6.0 RBC 4.04 Hgb 11.8 Hct 34.7 D MCV 85.7 MCH 29.2 MCHC 34.1 RDW 14.7 Plt Count 221 MPV 10.3 Absolute Neuts (auto) 3.3 Total Counted Neutrophils % 54.7 D Neutrophils % (Manual) Band Neutrophils % Lymphocytes % 35.8 D Lymphocytes % (Manual) Monocytes % 8.6 D Monocytes % (Manual) Eosinophils % 0.5 D Basophils % 0.4 Nucleated RBC % 0 Platelet Estimate Platelet Comment PT with INR INR PTT (Actin FS) Sodium 139 Potassium 4.2 Chloride 106 Carbon Dioxide 30 Anion Gap 3 L BUN 16 Creatinine 0.8 Creat Clearance w eGFR > 60 Random Glucose 85 Calcium 8.6 Phosphorus Magnesium Total Bilirubin 0.4 GGT 69 AST 24 ALT 31 Alkaline Phosphatase 150 H Total Protein 7.3 Albumin 3.7 Lipase Urine Color Yellow Urine Appearance Slcloudy Urine pH 8.0 Ur Specific [place] 1.028 Urine Protein 2+ H Urine Glucose (UA) Negative Urine Ketones Trace H Urine Blood 1+ H Urine Nitrite Negative Urine Bilirubin Negative Urine Urobilinogen 2.0 H Ur Leukocyte Esterase 2+ H Urine WBC (Auto) 10 Urine RBC (Auto) 40 Ur Epithelial Cells Few Urine Bacteria Rare Urine Mucus Rare Urine HCG, Qual Negative 05/14/18 05/14/18 06:00 06:00 WBC RBC Hgb Hct MCV MCH MCHC RDW Plt Count MPV Absolute Neuts (auto) Total Counted Neutrophils % Neutrophils % (Manual) Band Neutrophils % Lymphocytes % Lymphocytes % (Manual) Monocytes % Monocytes % (Manual) Eosinophils % Basophils % Nucleated RBC % Platelet Estimate Platelet Comment PT with INR 13.90 H INR 1.18 H PTT (Actin FS) 28.9 Sodium 142 Potassium 3.9 Chloride 112 H Carbon Dioxide 26 Anion Gap 5 L BUN 13 Creatinine 0.7 Creat Clearance w eGFR > 60 Random Glucose 81 Calcium 8.0 L Phosphorus 2.5 Magnesium 2.0 Total Bilirubin 0.4 GGT AST 15 ALT 26 Alkaline Phosphatase 123 H Total Protein 6.2 L Albumin 3.2 L Lipase Urine Color Urine Appearance Urine pH Ur Specific [place] Urine Protein Urine Glucose (UA) Urine Ketones Urine Blood Urine Nitrite Urine Bilirubin Urine Urobilinogen Ur Leukocyte Esterase Urine WBC (Auto) Urine RBC (Auto) Ur Epithelial Cells Urine Bacteria Urine Mucus Urine HCG, Qual CT scan of the abdomen pelvis without oral and intravenous contrast Coronal and sagittal reformatted images were obtained The visualized lung base appears unremarkable and the heart is within normal limits in size. Evaluation of the liver, spleen, pancreas, gallbladder and both adrenal glands appear unremarkable. Left kidney is within normal limits in size with a punctate nonobstructing stone in its lower pole measuring 1 to 2 mm. Right kidney is slightly larger than left with mild to moderate hydronephrosis and stranding of the perinephric fat, mainly around its lower pole. There is a punctate nonobstructing stone in its midportion measuring 2 mm. There is also mild-to- moderate dilatation of the right ureter down to an obstructing stone just prior to the ureterovesical junction measuring 6 x 4 mm. Urinary bladder is moderately distended without wall thickening or intraluminal stones. Partially distended stomach without gross wall thickening. There is no evidence of small bowel obstruction. Normal-appearing terminal ileum and appendix. Normal stool burden in the colon without wall thickening. Normal size uterus.. Both ovaries appear to be within normal limits in size. There is no free fluid in the cul-de- sac. Perirectal and pericecal fat are clear. No enlarged lymph nodes are identified. Normal size abdominal aorta down through its bifurcation. Visualized osseous structures appear intact Impression: Punctate nonobstructing right renal stone. Mild to moderate right renal hydronephrosis and hydroureter with stranding of the perinephric fat and with an obstructing stone in the distal right ureter just prior to the ureterovesical junction measuring 6 x 4 mm. Punctate nonobstructing left renal stone. HOSPITAL COURSE:The patient is a 33 yo f w/ PMH nephrolithiasis who comes into the ED c/o a 1 day hx nausea, vomiting and abdominal pain. The patient states that at about 7am this morning, she began to experience a sharp, 10/10 pain in her right flank area. This pain radiated to her right inguinal region and had no exacerbating or alleviating factors. These symptoms were also associated with dysuria as well as decreased urine output for the past day as well. The patient also endorses nausea and 5 episodes on NBNB vomiting. The vomiting resolved after the pain was treated in the ED. The patient denies fevers, chills hematuria, chest pain, SOB. Examination and investigations were done pt found to have stone in ureter. Urologist Dr. kline was consulted. He advised to start flonax. Now pt is feeling good, pain resolved. accepting orally. Pt is DC in stable condition. Follow up with your pcp with in one week Follow up with urologist Dr Issa in one week Drink plenty of liquid. Watch for stone in your urine. Take tylenol for pain control Take flomax daily for 7 days. Take keflex 500mg bid for 5 more days. If you develop nausea, vomiting, pain abdomen, fever and chills contact MD or go to hospital. Please note that the new medication flomax can cause dizziness. Advise to take at night. However if worsening dizziness noted, please stop the medication and contact your doctor. . Date of Admission:05/13/18 Date of Discharge: 05/14/18 Minutes to complete discharge: 45 Discharge Summary Reason For Visit: CALCULUS OF KIDNEY Current Active Problems Abdominal pain (Acute) Nephrolithiasis (Acute) Condition: Stable - Instructions Diet, Activity, Other Instructions: Follow up with your pcp with in one week Follow up with urologist Dr Issa in one week Drink plenty of liquid. Watch for stone in your urine. Take tylenol for pain control Take flomax daily for 7 days. Take keflex 500mg bid for 5 more days. If you develop nausea, vomiting, pain abdomen, fever and chills contact MD or go to hospital. Please note that the new medication flomax can cause dizziness. Advise to take at night. However if worsening dizziness noted, please stop the medication and contact your doctor. . Referrals: Mj Prince MD [Staff Physician] - 1 Week Flora Lopes MD [Primary Care Provider] - 1 Week Disposition: HOME - Home Medications Comprehensive Discharge Medication List: Ambulatory Orders Cephalexin Monohydrate [Keflex -] 500 mg PO BID #10 capsule 05/14/18 Tamsulosin HCl [Flomax -] 0.4 mg PO DAILY@0830 7 Days #7 cap.er.[id number] 05/14/18 This patient is new to me today: Yes Date on this admission: 05/14/18 Emergency Visit: Yes ED Registration Date: 05/13/18 Care time: The patient presented to the Emergency Department on the above date and was hospitalized for further evaluation of their emergent condition. Critical Care patient: No - Discharge Referral Referred to [facility] No
[2018-05-15] MEDS ORDERED: CEPHALEXIN MONOHYDRATE 500 MG CAPSULE (UD) PO SCH (10:00)
== END 2018-05-14 13:55 | disposition home or self-care (01) | DRG 465 ==
LOC: JER 14:37 → JERBED 18:41 → J8W 05-14 02:11
PROVIDERS: ADMIT Internal Medicine; ATTEND Hospitalist
DX: N13.2 Hydronephrosis with renal and ureteral calculous obstruction (principal); E87.5 Hyperkalemia; Z80.8 Family history of malignant neoplasm of other organs or systems; R01.1 Cardiac murmur, unspecified
CPT/HCPCS: 36415; 74176-TC; 80053; 81003; 81015; 82977; 83690; 83735; 84100; 84703; 85025; 85610; 85730; 87086; 93005; 93010; 99285-25; J7030